=== PATIENT | male | born 1970 | race Caucasian/White ===

== ENCOUNTER 2021-05-25 23:55 | Emergency (ER) | payer SELFPAY ==
[~2021-05-25] VITALS: Ht 154.9 cm; Wt 86.2 kg
[2021-05-25 23:55] VITALS: BP 128/76
--- NOTE | 2021-05-25 23:55 | NUR ---
ALEKSANDR RODRIGUEZ, PREBOOK. TAKEN TO CHAIR A
--- NOTE | 2021-05-26 00:33 | NUR ---
PATIENT BIB [employer]. PATIENT EXAMINED BY DR. ZENG. PATIENT MEDICALLY CLEARED AND RELEASED IN CUSTODY IN STABLE CONDITION. ORIGINAL PRE-BOOK FORM GIVEN TO OFFICER ONOFRE, #[id number].
== END 2021-05-26 00:33 ==
LOC: MED 23:55
DX: E11.65 Type 2 diabetes mellitus with hyperglycemia (principal); Z02.89 Encounter for other administrative examinations; V89.2XXA Person injured in unspecified motor-vehicle accident, traffic, initial encounter; Y93.89 Activity, other specified; Y92.89 Other specified places as the place of occurrence of the external cause; Y99.8 Other external cause status
CPT/HCPCS: 99283